=== PATIENT | male | born 1990 | race Caucasian/White ===

== ENCOUNTER 2021-02-18 21:31 | Emergency (ER) | payer BC ==
[2021-02-18] MEDS ORDERED: Ketorolac Tromethamine 30 MG/ML VIAL ONE (22:57)
== END 2021-02-19 00:02 | disposition home or self-care (01) ==
LOC: CSHERS 21:31
DX: M25.461 Effusion, right knee (principal); W19.XXXA Unspecified fall, initial encounter; Y93.64 Activity, baseball
CPT/HCPCS: 96374; J1885